=== PATIENT | male | born 2005 | race Caucasian/White ===

== ENCOUNTER 2025-03-10 22:36 | Emergency (ER) | payer OTHER, SELFPAY ==
[2025-03-10 22:43] VITALS: BP 138/74; PULSE 68; RESP 18; TEMP 36.7; O2SAT 99; BMI 27.4
--- NOTE | 2025-03-10 23:17 | ED.EYEPROB ---
HPI - Eye Problem General Chief complaint: Eye Problems Stated complaint: Left eye pain, Contact Stuck Time Seen by Provider: 03/10/25 22:41 History of Present Illness HPI Narrative: This 20-year-old male comes in with left eye discomfort and thinks that he has a contact that got displaced into the upper part of his eye. Prior to arrival he was repeatedly irrigating in attempting to remove it but was unsuccessful. Related Data Home Medications ?Medication ?Instructions ?Recorded ?Confirmed No Known Home Medications 03/10/25 03/10/25 Allergies Allergy/AdvReac Type Severity Reaction Status Date / Time No Known Drug Allergies Allergy Verified 03/10/25 22:45 Review of Systems Status of ROS: Reports: 10 or more systems reviewed and unremarkable except as noted in History and below Narrative: Constitutional: No fevers, no weight gain or loss. Eyes: No discharge. No vision changes. HENT: No congestion, no sore throat, no ear pain. Cardiovascular: No chest pain, no palpitations. Respiratory: No shortness of breath, no wheezes, no cough. Gastrointestinal: No abdominal pain, no vomiting, no diarrhea. Genitourinary: No dysuria, no hematuria. Musculoskeletal: Normal range of motion. Skin: No rashes, no pruritis. Neurological: No dizziness, weakness, sensory change, speech change. Endo/Heme/Allergies: No bruising or bleeding. No polydipsia. Pysch: no suicidality, no anxiety, no insomnia. All other systems reviewed and are negative. [facility] Medical History (Updated 03/10/25 @ 23:21 by Jerad Metz MD) No significant past medical history Surgical History (Updated 03/10/25 @ 22:46 by Adiel Hussein RN) No significant past surgical history Social History Smoking Status: Never smoker Second hand tobacco smoke exposure: No How often do you have a drink containing alcohol: never AUDIT-C Alcohol total score: 0 Non-prescribed substance use: marijuana (any form) Exam Narrative: Exam Narrative: Constitutional: Well-developed, well-nourished, no acute distress. HEENT: Normocephalic, atraumatic. Left eye is injected with some increased tearing. No purulence and no sign of foreign object when examined under magnification. I also everted the upper eyelid and found no foreign object. Neck: Normal range of motion. Nontender. Supple. Heart: Intact distal pulses. Lungs: No chest discomfort. No wheezes, rhonchi, or rales. Abdomen: Nontender. Back: Normal range of motion. Extremities: Normal range of motion. No injury. Skin: Intact. No rash. Warm. No erythema or pallor. Neurologic: No altered sensation. No weakness. Alert and oriented. Psychiatric: No suicidality. No anxiety or depression. No insomnia. Nursing notes and vitals signs are reviewed. Const: Vital Signs, click to edit/add: Vital Signs - 24 hr 03/10/25 22:43 Temperature 98.0 F Pulse Rate [Right Pulse Oximeter] 68 Respiratory Rate 18 Blood Pressure [Ri ght Upper Arm] 138/74 Pulse Oximetry 99 Oxygen Delivery Me thod Room Air Course Vital Signs Vital signs: Initial Vital Signs Temperature 98.0 F 03/10/25 22:43 Temperature Source Temporal Artery Scan 03/10/25 22:43 Pulse Rate 68 03/10/25 22:43 Respiratory Rate 18 03/10/25 22:43 Blood Pressure 138/74 03/10/25 22:43 Blood Pressure Mean 95 03/10/25 22:43 Blood Pressure Position Sitting 03/10/25 22:43 Pulse Oximetry 99 03/10/25 22:43 Oxygen Delivery Method Room Air 03/10/25 22:43 Vital Signs Temperature 98.0 F 03/10/25 22:43 Pulse Rate 68 03/10/25 22:43 Respiratory Rate 18 03/10/25 22:43 Blood Pressure 138/74 03/10/25 22:43 Pulse Oximetry 99 03/10/25 22:43 Oxygen Delivery Method Room Air 03/10/25 22:43 Temperature 98.0 F 03/10/25 22:43 Pulse Rate 68 03/10/25 22:43 Respiratory Rate 18 03/10/25 22:43 Blood Pressure 138/74 03/10/25 22:43 Pulse Oximetry 99 03/10/25 22:43 Oxygen Delivery Method Room Air 03/10/25 22:43 MDM - Eye Problem MDM Narrative Medical decision making narrative: This patient did receive tetracaine for some symptomatic relief and I repeatedly attempted to find a contact or other foreign object and was unsuccessful in seeing anything of the sort. The patient has been repeatedly irrigating in attempting to remove the contact prior to arrival here. Perhaps there is no longer a contact in his eye but he is irritated from his attempts at removing it. He is okay to be discharged home. If in fact to contact his behind his eye in the such a way that it cannot be visualized it should work its way forward over time. I did send home a bottle of flurbiprofen for symptomatic relief. Discharge Plan Discharge Clinical Impression: Acute left eye pain Patient Disposition: Home, Self-Care Condition: Stable Additional Instructions: Use medicine as needed and directed. Follow up with eye clinic if symptoms are persistent or return to emergency department if needed. Prescriptions: No Action No Known Home Medications Stand Alone Forms: AQS Info Instructions
[2025-03-10 23:26] VITALS: BP 131/70; PULSE 65; RESP 18; TEMP 36.7; O2SAT 99
[2025-03-10 23:28] VITALS: BP 131/70; PULSE 65; RESP 18; TEMP 36.7
--- OUTSIDE RECORDS SUMMARY | 2025-03-10 23:41 | XMS_ITS ---
Author Name [facility] Organization Unknown History of Medication Use Medication Directions Dispensed Refills Start Date End Date Stat amoxicillin 875 mg oral tablet amoxicillin 875 mg oral tablet; 1 (one) tablet two times daily for 7 days Quantity: 14 {Tablet}Refills: 0Ordered: [id number], ANP AmandaStart: [id number]: Watchfully waiting, fill if family requests. Do not fill after 03/08/22. 03/01/2022 active polymyxin B sulf-trimethoprim 10,000 unit- 1 mg/mL ophthalmic (eye) drops polymyxin B sulf-trimethoprim 10,000 unit- 1 mg/mL ophthalmic (eye) drops; 1 (one) drop both eyes four times daily for 7 days Quantity: 10 {Milliliter}Refills: 0Ordered: [id number], ANP AmandaStart: 01-Mar-202203/01/2022 active AdviL AdviL; as neededComments: Medication taken as needed. active No Medication Information Available No Medication Information Available active Allergies Allergen Reaction Severity Comment Documented Date Source [facility] OTIS AK_LTP NO KNOWN DRUG ALLERGIES AK_LTP NO ALLERGY INFORMATION AVAILABLE AK_LTP active Immunizations Vaccine Date Source Lot Number Status Influenza, quadrivalent, PF (6mo+) 04/02/2023 AK_LTP [id number] completed Moderna vaccine (12 years and older) 04/02/2023 AK_LTP [id number] completed Encounters Encounter Type Encounter Reason Primary Diagnosis Location Date Ambulatory [facility] 11/29/2024 Ambulatory Rupture of anterior cruciate ligament of left knee, subsequent encounter Rupture of anterior cruciate ligament of left knee, subsequent encounter [facility] 11/22/2024 Ambulatory [facility] 08/22/2024 Ambulatory [facility] 06/21/2024 Ambulatory [facility] 03/21/2024 Ambulatory [facility] 11/30/2023 Ambulatory [facility] 10/28/2023 Ambulatory [facility] 10/21/2023 Ambulatory [facility] 10/20/2023 Ambulatory [facility] 10/19/2023 Ambulatory [facility] 10/19/2023 Ambulatory [facility] 10/10/2023 Ambulatory [facility] 10/04/2023 Ambulatory Acute pain of left knee Acute pain of left knee [facility] 09/14/2023 Ambulatory [facility] 09/13/2023 Emergency Contusion of lef t ear, initial encounter [facility] 02/17/2022 Care Team Organization Name Specialty Phone Email Start Date End [facility] 10/21/2023 [facility] 10/04/2023 [facility] 09/13/2023 [facility] 04/05/2022 [facility] 03/01/2022 [facility] 02/17/2022 [facility]
== END 2025-03-10 23:44 | disposition home or self-care (01) ==
LOC: ED 23:40
PROVIDERS: Emergency Provider Emergency Medicine Emergency Medical Services
DX: H57.12 Ocular pain, left eye (principal); Y77.11 Contact lens associated with adverse incidents
CPT/HCPCS: 99283; 99284; A9270